=== PATIENT | male | born 1965 ===

== ENCOUNTER 2017-03-26 05:18 | Inpatient (IN) | payer OTHER ==
[~2017-03-26] VITALS: Ht 165.1 cm; Wt 86.2 kg
[2017-03-26] VITALS (15 sets, daily range): BP systolic 106–142; BP diastolic 60–88
[~2017-03-26 05:18] MED LIST: NKM
[2017-03-26] MEDS ORDERED: LR 1000ml 1,000 ML IVLG SCH (06:31)
--- NOTE | 2017-03-26 06:36 | Anethesia Preoperative Eval ---
Anesthesia Pre-op PMH/ROS General Date of Evaluation: Mar 26, 2017 Time of Evaluation: 07:09 Anesthesiologist: Rodríguez ASA Score: ASA 2 Mallampati Score Class I : Soft palate, uvula, fauces, pillars visible Class II: Soft palate, uvula, fauces visible Class III: Soft palate, base of uvula visible Class IV: Only hard plate visible Mallampati Classification: Class II Surgeon: Bebeto Diagnosis: Back Pain Surgical Procedure: R L4-5, L5-S1 laminectomy, microdiscetomy, microdecompression Family History: no anesthesia problems Allergies: Coded Allergies: No Known Allergies (Unverified , 03/25/17) Medications: see eMAR Past Medical History Cardiovascular: Reports: HTN Other: obesity - BMI 37 PSxH Narrative: R Shoulder SX Anesthesia Pre-op Phys. Exam Physician Exam Last Vital Signs Date Time Temp Pulse Resp B/P (MAP) Pulse Ox O2 Delivery O2 Flow Rate FiO2 03/26/17 06:00 97.8 71 20 142/88 98 Room Air Constitutional: NAD Neurologic: CN 2-12 intact Cardiovascular: RRR Respiratory: CTA Gastrointestinal: S/NT/ND Airway Exam Mallampati Score: Class II MO: limited ROM: limited Teeth: intact Anesthesia Pre-op A/P Risk Assessment & Plan Assessment: ASA 2 Plan: GA, BIS, Glidescope Status Change Before Surgery: No Pre-Antibiotics Dru grams Ancef IV Given Within 1 Hr of Incision: Yes Time Given: 07:21 Anatoliy Arreguin MD Mar 26, 2017 06:36
--- NOTE | 2017-03-26 06:37 | Immediate Post-Op Evaluation ---
Immediate Post-Op Evalulation Immediate Post-Op Evalulation Procedure: R L4-5, L5-S1 laminectomy, microdiscetomy, microdecompression Date of Evaluation: Mar 26, 2017 Time of Evaluation: 10:44 IV Fluids: 1000 LR Blood Products: 0 Estimated Blood Loss: 25 Urinary Output: 100 Blood Pressure Systolic: 136 Blood Pressure Diastolic: 81 Pulse Rate: 84 Respiratory Rate: 16 O2 Sat by Pulse Oximetry: 96 Temperature (Fahrenheit): 97.9 Pain Score (1-10): 3 Nausea: No Vomiting: No Complications 0 Patient Status: awake, reacts, patent, extubated, none Hydration Status: adequate Dru Grams Ancef IV Given Within 1 Hr of Incision: Yes Time Given: 07:21 Anatoliy Arreguin MD Mar 26, 2017 06:37
[2017-03-26] MEDS ORDERED: Midazolam 2mg/2ml Inj IVP PRN (06:45)
[2017-03-26] MEDS ORDERED: Ketorolac 60mg Inj IV PRN (06:45)
[2017-03-26] MEDS ORDERED: Acetaminophen (Non formulary) 100 ML IV ONE (06:45)
[2017-03-26] MEDS ORDERED: Atropine Inj 1mg/10ml Syr IV PRN (06:45)
[2017-03-26] MEDS ORDERED: DiphenhydrAMINE 50mg/ml Inj IVP PRN (06:45)
[2017-03-26] MEDS ORDERED: LORazepam Inj 2mg/ml 1ml IV PRN (06:45)
[2017-03-26] MEDS ORDERED: Metoclopramide 10mg/2ml Inj IVP PRN (06:45)
[2017-03-26] MEDS ORDERED: Hydromorphone 0.5mg/0.5ml inj IVP PRN (06:45)
[2017-03-26] MEDS ORDERED: Norco 5mg/325mg tab ORAL PRN ×2 (06:45→13:00)
[2017-03-26] MEDS ORDERED: Ketorolac 30mg Inj IV PRN (06:45)
[2017-03-26] MEDS ORDERED: Meperidine 25mg/0.5ml Inj (FOR RIGORS ONLY) IV PRN (06:45)
[2017-03-26] MEDS ORDERED: oxyCODONE HCL/Acetaminophen 5/325mg ORAL PRN (06:45)
[2017-03-26] MEDS ORDERED: fentaNYL 100 mcg/2 mL IV PRN (06:45)
[2017-03-26] MEDS ORDERED: Norco 7.5mg/325mg tab ORAL PRN ×3 (06:45→13:00)
[2017-03-26] MEDS ORDERED: Thrombin 5000 units TOPIC ONE (06:54)
[2017-03-26] MEDS ORDERED: Bupivacaine 0.5% Inj 30 ml vial INJ ONE (06:54)
[2017-03-26] MEDS ORDERED: Vancomycin 1gm inj IVPB ONE (06:54)
[2017-03-26] MEDS ORDERED: Thrombin 5000 units spray kit TOPIC ONE (06:55)
[2017-03-26] MEDS ORDERED: Gelfoam Absorbable 1gm powder pkt TOPIC ONE (06:55)
[2017-03-26] MEDS ORDERED: Bacitracin 50000 Units Vial ONE (06:55)
[2017-03-26] MEDS ORDERED: Lidocaine 1% Plain 30 ml INJ ONE (07:00)
[2017-03-26] MEDS ORDERED: Sodium Chloride 10ml vial INJ ONE (07:00)
[2017-03-26] MEDS ORDERED: Sterile Water Irrig 1000ml IRRIG ONE (07:00)
[2017-03-26] MEDS ORDERED: fentaNYL 250mcg/5ml ONE (07:00)
[2017-03-26] MEDS ORDERED: Labetalol 5mg/ml 20ml vial IV ONE (07:00)
[2017-03-26] MEDS ORDERED: Zemuron 50mg/5ml Inj IV ONE (07:00)
[2017-03-26] MEDS ORDERED: Dexamethasone 4mg/ml vial ONE (07:00)
[2017-03-26] MEDS ORDERED: Neostigmine 1mg/ml 10ml Inj ONE (07:00)
[2017-03-26] MEDS ORDERED: Glycopyrrolate 0.2mg/ml 1ml Vial ONE (07:00)
[2017-03-26] MEDS ORDERED: Propofol 1,000mg/ 100ml btl IV ONE (07:00)
[2017-03-26] MEDS ORDERED: NS Irrig 1000ml ONE (07:00)
[2017-03-26] MEDS ORDERED: Phenylephrine 10mg/ml Vial ONE (07:00)
[2017-03-26] MEDS ORDERED: LR 1000ml ONE (07:00)
[2017-03-26] MEDS ORDERED: ceFAZolin 2gm/50ml Premix 50 ML IVPB ONE (07:00)
[2017-03-26] MEDS ORDERED: Lidocaine 1% MPF 10mg/ml 5ml ONE (07:00)
--- NOTE | 2017-03-26 07:27 | Pre-Procedure Note/Attestation ---
Pre-Procedure Note/Attestation Complete Prior to Procedure Procedure Narrative: right l45 and l5s1 microdecompression and microdiscectomies Indications for Procedure Pre-Operative Diagnosis: lumbar radiculopathy Attestation I attest that I discussed the nature of the procedure; its benefits; risks and complications; and alternatives (and the risks and benefits of such alternatives ), prior to the procedure, with the patient (or the patient's legal technical sales representative). I attest that, if there was a reasonable possibility of needing a blood transfusion, the patient (or the patient's legal technical sales representative) was given the [facility] standardized written summary, pursuant to the Tony Elizabeth Blood Safety Act ([place] Health and Safety Code # 1645, as amended). I attest that I re-evaluated the patient just prior to the surgery and that there has been no change in the patient's H&P, except as documented below: ELISE STOCK Mar 26, 2017 07:27
[2017-03-26] MEDS ORDERED: Bupivacaine w/Epi 0.5% 30ml Vial INJ ONE (07:39)
--- NOTE | 2017-03-26 10:06 | Brief Operative Note ---
Immediate Post Operative Note Operative Note Pre-op Diagnosis: lumbar radiculopathy Procedure: r l45 and l5s1 microdecompression and microdiscectomy Post-op Diagnosis: same as pre-op Findings: consistent w/pre-op dx studies Surgeon: atif [employer] Hand: shahram uriarte rn assist Anesthesiologist: isaiah Anesthesia: general Specimen: none Complications: none Condition: stable Fluids: 1 liter Estimated Blood Loss: minimal - 25cc Implant(s) used?: No ELISE STOCK Mar 26, 2017 10:05
[2017-03-26] MEDS ORDERED: Naloxone 0.4mg/ml Inj IVP PRN (13:00)
[2017-03-26] MEDS ORDERED: HYDROmorphone 1mg/ml Carpuject SUBQ PRN (13:00)
[2017-03-26] MEDS ORDERED: ceFAZolin sod 1 GM in D5W 55 ML IV SCH (15:00)
[2017-03-26] MEDS: ceFAZolin sod 1 GM in D5W 55 ML IV SCH ×2 (15:13→23:02)
[2017-03-26] MEDS: Docusate 100mg cap ORAL SCH (18:24)
[2017-03-27] VITALS: BP 102/62
--- NOTE | 2017-03-27 03:30 | Operative Note - Dictated ---
DATE OF OPERATION: 03/26/2017 PREOPERATIVE DIAGNOSES: L4-L5 and L5-S1 disc protrusions with stenosis and right lower extremity radiculopathy. POSTOPERATIVE DIAGNOSES: L4-L5 and L5-S1 disc protrusions with stenosis and right lower extremity radiculopathy. PROCEDURE PERFORMED: 1. Right-sided L4-L5 inter lumbar laminotomy, medial facetectomy, foraminotomy, and microdiskectomy. 2. Right-sided L5-S1 inter lumbar laminotomy, medial facetectomy, foraminotomy, and microdiskectomy. 3. Intraoperative use of microscope. 4. Intraoperative use of fluoroscopy. SURGEON: Matt Tate M.D. FLIGHT LINE SERVICE ATTENDANT: Savannah Rivas registered nurse produce assistant. ANESTHESIA: General endotracheal anesthesia. ANESTHESIOLOGIST: Anatoliy Arreguin M.D. Intraoperative Findings: L4-L5 and L5-S1 disc protrusions with stenosis and impingement of the traversing and exiting nerve roots at L4-L5 and L5-S1. EBL: 25 mL. FLUIDS: One liter of crystalloid. INDICATIONS: The patient is a pleasant male, who continued to have low back pain and right upper extremity radicular symptoms who had failed nonoperative treatments. Options for above treatment were given. Risks, alternatives, and benefits were discussed with the patient. Risks include, but are not limited to anesthesia complications including , medical complications including liver, kidney, and cardiopulmonary deficits, bleeding infection, dural tear, CSF leak, nerve root injury, pars fracture, instability as well as continued symptoms. OPERATION IN DETAIL: The patient was brought into the operating room supine on a stretcher. Appropriate IV lines were placed by the anesthesiologist and 2 g of Ancef was administered. Surgical time-out was done. Anesthesia was induced and the patient was successfully intubated. Sequential compression devices were placed into the bilateral lower extremities. The patient was gently turned over on the Chet frame table. All bony prominences were well padded and the abdomen was assured to lay freely. The right upper extremity was placed in a 90-90 position to take tension off of the rotator cuff as the patient has previously had a right shoulder arthroscopic rotator cuff repair. The L4-L5 and L5-S1 interspaces were positively identified with fluoroscopy and the midline was marked with an indelible marker. The patient was prepped and draped in a usual sterile fashion with alcohol, chlorhexidine scrub, ChloraPrep, and Ioban draping. At this point, myself and my produce assistant were prepped and gowned appropriately. An incision was carried out over the midline. The intraoperatively sterilely draped microscope was brought into the field and a scalpel was used to make an incision over the midline. With monopolar cautery, the dorsal lumbar fascia was incised and subperiosteal dissection of the lamina on the right side at L4-L5 and L5-S1 was done. Once this was done, retractors were set into place from the black top machine operator system. A radiopaque marker was placed at the level of the pedicle and lateral fluoroscopy was done and the L5 pedicle and thus, the L4-L5 interspace was positively identified. Attention was first diverted to the L4-L5 interspace. With a high-speed drill and #2, #3, #4, #5 Kerrison punches and a nerve hook as well as straight and curved curettes, an inter lumbar laminotomy, medial facetectomy, and foraminotomy was accomplished. There was foraminal stenosis as well as lateral recess and central stenosis, which was completely decompressed. A #4 Ridgeley retractor was used to gently retract the common dural sac as well as the traversing nerve at L4-L5. The disk protrusion was found and with a #11 scalpel, an incision was carried out in the posterior anulus with pituitary rongeur and Suazo rongeur as well as a nerve hook and Ebstein, the disk protrusion was removed until the floor of the canal was flat and complete decompression at L4-L5 with assured Valsalva at 40 mmHg was done and there was no CSF leak. The disk space was copiously irrigated with triple antibiotic solution and all disc material and debris was slowly removed. Now, attention was diverted to the right L5-S1 interspace and retractors were set into place at the right L5-S1 interspace. With the same instruments, an inter lumbar laminotomy, medial facetectomy, foraminotomy, and microdiskectomy was accomplished. A sequestered fragment was also removed at L5-S1 and attention was diverted to decompressing the exiting L5 nerve root on the right side and the traversing S1 nerve root as well. The floor of the canal was found to be flat at the end of the decompression and all debris was removed. The lateral recess, central canal, and foramina were found to be thoroughly decompressed and SSEP remained stable throughout the case. There was no EMG activity. At this point, the wound was copiously irrigated with triple antibiotic solution. Valsalva at 40 mmHg was done. There was no CSF leak. Now, attention was diverted to closure. The dorsal lumbar fascia was closed with #1 Vicryl sutures in watertight interrupted fashion. The subdermal and subcuticular layers were closed with 2-0 Vicryl sutures. The skin was closed with Dermabond. Sterile dressing tape was placed. The patient was turned supine, was extubated in stable condition, and was taken to the recovery room in stable condition and found to be neurovascularly intact. Matt Tate M.D. DR: Zaida JOB#: [id number] CC: JEFF
[2017-03-27 04:00] VITALS: BP 99/63
[2017-03-27] MEDS: ceFAZolin sod 1 GM in D5W 55 ML IV SCH (06:37)
[2017-03-27 08:00] VITALS: BP 122/66
[2017-03-27] MEDS: Docusate 100mg cap ORAL SCH (08:07)
[2017-03-27] MEDS ORDERED: Tubing IV Secondary IV ONE (10:40)
[2017-03-27] MEDS ORDERED: NAPROSYN500 M1 ORAL (11:27)
[2017-03-27] MEDS ORDERED: TRAMADOL HCL50 MG ORAL (11:27)
--- NOTE | 2017-03-27 11:28 | General Progress Note ---
Progress Note Progress Note min lbp no leg pain inc cdi walking well improved after surgery per pt o: avss a and o times 3 inc cdi dressing cdi motor 5/5 le calves soft and nt lt intact ap: doing well post op dc home rx given fu 7 to 10 days. ELISE STOCK Mar 27, 2017 11:28
[2017-03-27 18:05] VITALS: BP 108/56
--- NOTE | 2017-03-27 18:05 | 48 Hour Post Anesthesia Eval ---
Post Anesthesia Evaluation Procedure: R L4-5, L5-S1 laminectomy, microdiscetomy, microdecompression Date of Evaluation: Mar 27, 2017 Time of Evaluation: 18:04 Blood Pressure Systolic: 108 0: 56 Pulse Rate: 72 Respiratory Rate: 20 Temperature (Fahrenheit): 97.6 O2 Sat by Pulse Oximetry: 98 Airway: patent Nausea: No Vomiting: No Pain Intensity: 3 Hydration Status: adequate Cardiopulmonary Status: stable Mental Status/LOC: patient returned to baseline Follow-up Care/Observations: n/a Post-Anesthesia Complications: none Follow-up care needed: ready to discharge ALISON HOPE M.D. Mar 27, 2017 18:05
--- NOTE | 2017-03-30 11:47 | Discharge Summary ---
Discharge Summary Hospital Course Date of Admission Mar 26, 2017 at 05:18 Date of Discharge Mar 27, 2017 at 12:47 Admitting Diagnosis L4-L5 and L5-S1 disc protrusions with stenosis and right lower extremity radiculopathy. Reason for Hospitalization: elective surgery HPI Ovidio Lewis is a 51 year old male who was admitted on Mar 26, 2017 at 05: 18 for L4-L5 and L5-S1 disc protrusions with stenosis and right lower extremity radiculopathy for elective surgery . Procedures s/p 03/[address] 1. Right-sided L4-L5 inter lumbar laminotomy, medial facetectomy, foraminotomy, and microdiskectomy. 2. Right-sided L5-S1 inter lumbar laminotomy, medial facetectomy, foraminotomy, and microdiskectomy. 3. Intraoperative use of microscope. 4. Intraoperative use of fluoroscopy. Hospital Course s/p surgery course of recovery unremarkable minimal low back pain pain management no leg pain neurovascular intact dressing C/D/I ambulated voided freely tolerated diet scripts provided fup as outpt in 7-10 days as recommended by surgeon FINAL DIAGNOSIS 1. L4-L5 and L5-S1 disc protrusions with stenosis and right lower extremity radiculopathy. 2. R L4-5, L5-S1 laminectomy, microdiscectomy, microdecompression Discharge Medications Continued Medications: Naproxen* (Naprosyn*) 500 Mg Tablet 500 MG ORAL TWICE A DAY, #40 TAB No Known Medications* (NKM - No Known Medications*) . 0 ., 0 Refills Tramadol Hcl* (Ultram*) 50 Mg Tablet 50 MG ORAL Q6H PRN for For Pain, #40 TAB 0 Refills Discharge Condition Upon Discharge: stable Discharge Disposition Patient was discharged to Home (01) Discharge Diagnoses: Discharge Instructions Discharge Instructions Special Instructions I have been assigned to complete a D/C Summary on this account. I was not involved in the patient management Margaux Henry NP (Vanchtein) Mar 30, 2017 11:47
== END 2017-03-27 12:47 | disposition home or self-care (01) | DRG 520 ==
LOC: SDSOVERFLO 05:18 → 3E 12:07
DX: M51.16 Intervertebral disc disorders with radiculopathy, lumbar region (principal); E66.9 Obesity, unspecified; M51.17 Intervertebral disc disorders with radiculopathy, lumbosacral region; F17.200 Nicotine dependence, unspecified, uncomplicated
CPT/HCPCS: 36415; 72020; 76001; 86850; 86900; 86901; 87081; 94003; 94150; J2180; J2370; J2405; J2710